=== PATIENT | male | born 1930 | race Caucasian/White ===

== ENCOUNTER → 2018-06-14 | Outpatient (CLI) | payer OTHER ==
[~2018-06-14] MED LIST: ASPIRIN EC81 M1; CENTRUM SILVER1 EAC4 PO; CRESTOR10 MG PO; FISH OIL 1,0001 EAC5; GRAM-O-LECI1000 MG PO; KEFLEX500 MG PO; PLAVIX 75 MG TA75 M1; PROTONIX 20 MG20 M1 PO; SIMVASTATIN40 MG; TOPROL XL25 MG PO
== END ==
LOC: M.ULTRA 06:50
DX: I71.4 Abdominal aortic aneurysm, without rupture (principal)